=== PATIENT | female | born 1955 | race Caucasian/White ===

== ENCOUNTER 2017-10-16 19:34 | Inpatient (IN) | payer MEDICAID ==
[~2017-10-16] VITALS: Ht 167.6 cm; Wt 123.1 kg
[~2017-10-16 19:34] MED LIST: ACETAMINOPHEN-1 EAC1 PO; ADVAIR HFA115 MCG/21 INH; AMOXICILLIN875 MG PO; ATENOLOL 100MG100 MG PO; AUGMENTIN 875875 MG PO; AZITHROMYCIN 2250 MG PO; BENTYL 10 MG CA10 M1 PO; CEFUROXIME500 MG PO; CENTRUM SILVER1 EAC2 PO; CITRATE OF MAG296 ML PO; CLARITIN10 MG PO; CLOTRIMAZOLE 1%15 G1 TOP; COLACE100 MG PO; CORTISPORIN OTI10 M2 OT; CRESTOR10 MG PO; CRESTOR5 MG PO; DIFLUCAN200 MG PO; DOXYCYCLINE 10100 MG PO; EXCEDRIN CAPLE1 EACH PO; FLONASE 0.05%50 MCG NASAL; FLOVENT DISKUS50 MCG IH; GLUMETZA500 PO; HYDROCHLOROTHIA25 M1 PO; HYDROCHLOROTHIA25 M2 GT; HYDROCODONE-AP1 EAC6 PO; HYDROXYZINE HCL50 MG; HYDROXYZINE PAM50 MG PO; IBUPROFEN 800800 MG PO; K-DUR 20 MEQ T20 MEQ; KLOR-CON 1010 MEQ PO; LEVOTHROID75 MCG; LEVOTHYROXINE0.05 MG PO; LIPITOR20 MG PO; LORAZEPAM 1 MG T1 M1 PO; LORAZEPAM 1 MG T1 MG PO; MACROBID 100 M100 M1 PO; MUCINEX TA600 MG/TA2 PO; NAPROSYN500 MG PO; NIASPAN 500 MG500 M1; NORCO 5-325 TA1 EAC1 PO; NORCO 5-325 TA1 EACH PO; PERCOCET 5-3251 EACH PO; POTASSIUM20; PROBIOTIC1 EAC1 PO; PROTONIX40 M1 PO; SERTRALINE HCL50 MG PO; SINGULAIR 10 MG10 M1 PO; SYNTHROID PO; SYNTHROID100 MCG; TESSALON200 MG PO; TRANSDERM-SCO1 PATC1 TD; TRIAMCINOLONE A80 G2 TOP; ULTRAM 50MG TAB50 MG PO; UNICOMPLEX M TA1 TA1 PO; VERAMYST10 GM; VITAMIN D3400 UNIT PO; XOPENEX 0.63 MG/3 M1 INH; ZOLOFT 50 MG TA50 M1 PO; ZPAK PO; [UNRECOGNIZED DRUG - OTHER] PO; [UNRECOGNIZED DRUG - OTHER] TP
[2017-10-16 19:38] VITALS: BP 178/91
[2017-10-16 20:13] LABS: URINE BILIRUBIN NEGATIVE (Negative); URINE BLOOD TRACE (Negative); URINE CLARITY CLEAR; URINE COLOR YELLOW; URINE GLUCOSE-RANDOM NEGATIVE (Negative); URINE KETONES NEGATIVE (Negative); URINE LEUKOCYTES-REFLEX TRACE (Negative); URINE NITRITE-REFLEX NEGATIVE (Negative); URINE PROTEIN NEGATIVE (Negative); URINE UROBILINOGEN 0.2 E.U./dl (0.2-1.0)
[2017-10-16 20:23] LABS: MUCUS None Seen strn/LPF (None Seen); SQUAMOUS >10 Many /LPF (0-3)
[2017-10-16 20:24] LABS: BACTERIA-REFLEX 1-9 Few /HPF (None Seen); CASTS None Seen /LPF (None Seen); CRYSTALS None Seen /LPF (None Seen); URINE RBC 0-2 Rare /HPF (0-2); URINE WBC-REFLEX 0-5 Rare /HPF (0-5)
[2017-10-16 20:56] LABS: ABSOLUTE EOSINOPHILS 0.1 thou/uL (0.0-0.7); ABSOLUTE LYMPHOCYTES 2.6 thou/uL (0.8-5.3); ABSOLUTE MONOCYTES 0.7 thou/uL (0.0-1.2); ABSOLUTE NEUTROPHILS 3.3 thou/uL (1.6-8.1); BASOPHILS 0.4 %; EOSINOPHILS 2.2 %; HEMATOCRIT 40.3 % (37.0-47.0); HEMOGLOBIN 13.6 gm/dL (12.0-15.0); LYMPHOCYTES 38.4 %; MCH 29.2 pg (26.0-34.0); MCHC 33.8 g/dL (28.0-37.0); MCV 86.3 fL (80.0-100.0); MPV 8.4 fl. (7.2-11.1); NUCLEATED RBCS 0 /100WBC; PLATELET COUNT* 201 thou/uL (150-400); RBC 4.66 mil/uL (4.20-5.00); RDW-CV 13.9 % (10.5-14.5); WBC 6.7 thou/uL (4.0-11.0)
[2017-10-16 21:05] LABS: ANION GAP 10 mmol/L (7-16); BUN 24 mg/dL (7-18); CALCIUM 9.2 mg/dL (8.5-10.1); CHLORIDE 106 mmol/L (98-107); CO2 26 mmol/L (21-32); CREATININE 1.4 mg/dL (0.6-1.3); GLUCOSE 131 mg/dL (70-99); POTASSIUM 4.5 mmol/L (3.5-5.1); SODIUM 142 mmol/L (136-145)
[2017-10-16 21:12] LABS: ALBUMIN 3.7 g/dL (3.4-5.0); ALKALINE PHOSPHATASE 90 U/L (46-116); LIPASE 207 U/L (73-393); SGOT 27 U/L (15-37); SGPT 46 U/L (30-65); TOTAL BILIRUBIN 0.4 mg/dL (<0.1-1.0); TOTAL PROTEIN 7.8 g/dL (6.4-8.2); TROPONIN-I LEVEL <0.06 ng/mL (<0.06)
[2017-10-16 23:08] LABS: BE -5.2 mmol/L (-2 to +3); HCO3 22.3 mmol/L (22.0-26.0); PO2 62.5 mmHg (75.0-100.0)
[2017-10-16 23:13] LABS: PCO2 51.2 mmHg (35.0-45.0); pH 7.257 (7.340-7.450)
[2017-10-16 23:30] VITALS: BP 139/72
[2017-10-17 00:09] VITALS: BP 138/79
--- NOTE | 2017-10-17 13:13 | EKG ---
[place] [address] ELECTROCARDIOGRAM REPORT Name: MANDY TUCKER Room: [address] ADM IN .R.#: [id number] Admission: 10/16/17 Attend Phys: David Dumont Discharge: Date of : 55 Report #: [id number] THIS REPORT FOR: //name// [facility] ED Test Date: 2017-10-16 Test Time: 20:19:26 Pat Name: MANDY TUCKER Department: Room: [facility] Gender: F Biological Science Technician: RAEANN : 1955 Requested By: Kenneth Cosby Order Number: [id number] MD: Aureliano Eastman Measurements Intervals [place] Rate: 76 P: 44 [place]: 168 QRS: 42 QRSD: 89 T: 58 QT: 385 QTc: 433 Interpretive Statements Sinus rhythm Abnormal R-wave progression, early transition Baseline wander in lead(s) V1 Compared to ECG 08/06/2017 11:29:15 no change Electronically Signed On 10-17-2017 13:13:05 CONCRETE FINISHER by Aureliano Eastman [email or web address] <ELECTRONICALLY SIGNED> By: Aureliano Eastman MD, [facility] 10/17/17 1313 18 18 Aureliano Eastman MD, [facility] /EPI
[2017-10-17 16:13] LABS: AMP/METHAMP Negative (Negative); BARBITURATES Negative (Negative); BENZODIAZEPINES Negative (Negative); COCAINE Negative (Negative); METHADONE Negative (Negative); OPIATES Negative (Negative); PCP Negative (Negative); THC Negative (Negative)
[2017-10-17 17:43] VITALS: BP 127/64
[2017-10-17 20:00] VITALS: BP 128/74
[2017-10-17 22:15] VITALS: BP 149/82
[2017-10-18 00:16] VITALS: BP 133/66
[2017-10-18 03:58] VITALS: BP 132/67
[2017-10-18 06:03] LABS: HEMATOCRIT 35.6 % (37.0-47.0); MCH 29.5 pg (26.0-34.0); MCHC 33.8 g/dL (28.0-37.0); MCV 87.2 fL (80.0-100.0); MPV 8.9 fl. (7.2-11.1); NUCLEATED RBCS 0 /100WBC; PLATELET COUNT* 162 thou/uL (150-400); RBC 4.08 mil/uL (4.20-5.00); RDW-CV 14.1 % (10.5-14.5); WBC 5.9 thou/uL (4.0-11.0)
[2017-10-18 06:30] LABS: CALCIUM 8.8 mg/dL (8.5-10.1); CREATININE 1.5 mg/dL (0.6-1.3); POTASSIUM 5.2 mmol/L (3.5-5.1)
[2017-10-18 07:45] LABS: ABSOLUTE LYMPHOCYTES 0.6 thou/uL (0.8-5.3); ABSOLUTE MONOCYTES 0.1 thou/uL (0.0-1.2); ABSOLUTE NEUTROPHILS 5.1 thou/uL (1.6-8.1)
[2017-10-18 07:46] LABS: PLATELET ESTIMATE DECREASED
[2017-10-18 08:00] VITALS: BP 153/68
[2017-10-18 12:10] VITALS: BP 134/74
--- NOTE | 2017-10-18 12:12 | EKG ---
[place] [address] ELECTROCARDIOGRAM REPORT Name: MANDY TUCKER Room: [address] ADM IN M.R.#: [id number] Admission: 10/16/17 Attend Phys: David Dumont Discharge: Date of : 55 Report #: [id number] THIS REPORT FOR: //name// [facility] Test Date: 2017-10-17 Test Time: 22:15:41 Pat Name: MANDY TUCEKR Department: Room: [address] Gender: F Database Design Analyst: ISAAC : 1955 Requested By: Guilherme Marion Order Number: [id number] MD: Rusty Melgar Measurements Intervals [place] Rate: 89 P: 56 TN: 170 QRS: 56 QRSD: 93 T: 55 QT: 379 QTc: 462 Interpretive Statements Sinus rhythm Compared to ECG 10/16/2017 20:19:26 No significant changes Electronically Signed On 10-18-2017 12:12:20 MANAGER ENGLISH by Rusty Melgar [email or web address] <ELECTRONICALLY SIGNED> By: Rusty Melgar MD, [facility] 10/18/17 1212 2215 2215 Rusty Melgar MD, FAC /EPI
[2017-10-18 15:40] VITALS: BP 133/62
[2017-10-18 17:42] LABS: BE -6.1 mmol/L (-2 to +3); HCO3 20.1 mmol/L (22.0-26.0); PCO2 42.2 mmHg (35.0-45.0); PO2 70.9 mmHg (75.0-100.0)
[2017-10-18 17:44] LABS: pH 7.295 (7.340-7.450)
[2017-10-18 20:00] VITALS: BP 130/66
[2017-10-19 00:36] VITALS: BP 158/87
[2017-10-19 03:57] LABS: HEMATOCRIT 35.1 % (37.0-47.0); HEMOGLOBIN 11.6 gm/dL (12.0-15.0); MCH 29.1 pg (26.0-34.0); MCV 88.1 fL (80.0-100.0); MPV 8.5 fl. (7.2-11.1); RBC 3.98 mil/uL (4.20-5.00); RDW-CV 14.1 % (10.5-14.5); WBC 11.5 thou/uL (4.0-11.0)
[2017-10-19 04:06] VITALS: BP 137/72
[2017-10-19 04:11] LABS: ALBUMIN 3.2 g/dL (3.4-5.0); CALCIUM 8.6 mg/dL (8.5-10.1); CREATININE 1.5 mg/dL (0.6-1.3); POTASSIUM 4.8 mmol/L (3.5-5.1); TOTAL BILIRUBIN 0.2 mg/dL (<0.1-1.0); TOTAL PROTEIN 6.9 g/dL (6.4-8.2)
[2017-10-19 09:00] VITALS: BP 157/63
[2017-10-19 15:56] VITALS: BP 147/76
[2017-10-19 20:00] VITALS: BP 176/86
[2017-10-20] VITALS: BP 172/78
[2017-10-20 03:37] VITALS: BP 161/60
[2017-10-20 08:00] VITALS: BP 185/86
[2017-10-20 12:24] LABS: BE -3.3 mmol/L (-2 to +3); HCO3 20.5 mmol/L (22.0-26.0); PCO2 32.8 mmHg (35.0-45.0); PO2 82.3 mmHg (75.0-100.0); pH 7.413 (7.340-7.450)
[2017-10-20 16:00] VITALS: BP 179/85
[2017-10-20 16:31] VITALS: BP 179/100
[2017-10-20 20:00] VITALS: BP 152/81
[2017-10-21 02:46] VITALS: BP 177/87
[2017-10-21 04:00] VITALS: BP 177/87
[2017-10-21 07:30] VITALS: BP 157/77
--- NOTE | 2017-10-21 07:56 | CON ---
[address] [address] CONSULTATION Name: MANDY TUCKER Room: [address] IN M.R.#: [id number] Admission: 10/16/17 Attend Phys: David Dumont Discharge: Date of : 55 Report #: [id number] THIS REPORT FOR: //name// CC: Freeman Marion DO DATE OF SERVICE: 10/18/2017 ATTENDING PHYSICIAN: Guilherme Marion DO INDICATION FOR CONSULTATION: Dyspnea on exertion, abnormal blood gases. CLINICAL SUMMARY: The patient is a 62-year-old female, current smoker with chronic obstructive pulmonary disease and chronic narcotic use. She has had a prior history of kidney cancer on the right. She states that breathing treatments do not help her. She has tried Advair at home, it does not seem to help. She has chronic pain issues. She denies having obstructive sleep apnea in the past, has not had a sleep study. She does sleep quite a few hours during the day and sometimes does not feel rested. She had abnormal blood gases. She is alert and awake this morning and doing well on 1-2 liters. She is not on oxygen at home. She does not use a nebulizer machine at home. PAST MEDICAL HISTORY: She has a history of chronic obstructive pulmonary disease. She has chronic pain, back pain, constipation, dizziness, dyspnea on exertion, mild renal insufficiency, questionable history of rheumatoid arthritis in the past, right kidney removed for cancer about 3 years ago, questionable history of esophageal CA in the past.. ALLERGIES: SHE HAS MULTIPLE ALLERGIES TO CIPRO, SULFA, KEFLEX, IVP DYE, LEVOTHYROXINE, MORPHINE, SUMATRIPTAN, TETRACYCLINE. ALL THESE ARE UNSURE WHAT THE REACTION SHE HAS. MEDICATIONS: She is on hydrocodone at home, [place] 5/325 every 6 hours, also on clotrimazole and hydroxyzine 50 mg at night. Also, on sertraline or Zoloft 50 mg tablets daily, Crestor 10 mg daily, atenolol 100 mg daily, levothyroxine 100 mcg daily, lorazepam 1 mg t.i.d., fluticasone 1 spray b.i.d., montelukast 10 mg daily, and Docusate 100 mg b.i.d. FAMILY HISTORY: Negative for premature cardiopulmonary disease. SOCIAL HISTORY: The patient still smokes, has a half to one pack a day history and about a 48-glwj-covj history. Denies any alcohol or illicit drug use. Again, significant narcotic use at home. REVIEW OF SYSTEMS: A 14-point review of systems reviewed [place] [address] CONSULTATION Name: GARRETTMANDY F Room: [address] IN ..#: [id number] Admission: 10/16/17 Attend Phys: David Dumont Discharge: Date of : 55 Report #: [id number] for pertinent positives noted in HPI. PHYSICAL EXAMINATION: GENERAL: A 62-year-old female who this morning is alert and oriented and seems quite pleasant. She is in no distress and talked to me in full sentences. VITAL SIGNS: Blood pressure is 132/67, heart rate 84, respirations 16, temperature is 36.7 degrees, saturation on 2 liters 95%. She is 5 feet 3 inches tall, weight 265 pounds, BMI is 43. HEENT: Nares and pharynx, tongue is quite crowded, Mallampati score of 3. NECK: Shows a thick neck without masses or adenopathy. CHEST: Shows decreased breath sounds, otherwise clear. No wheeze. CARDIOVASCULAR: Regular rate and rhythm without murmur, gallop or rub. Heart rate is 84. ABDOMEN: Obese without masses or megaly. EXTREMITIES: No calf tenderness. No cyanosis, clubbing or edema. SKIN: Dry and intact. NEUROLOGIC: Intact. LABORATORY DATA: Hemoglobin is 12, white count 5900, normal differential. This morning sodium is 144, potassium is 5.2, BUN is 23, creatinine is 1.5, glucose is 105. ABGs from late 10/16/2017 at 2300 while she was somewhat sleepy on 2 liters showed a pO2 of 62, pH 7.25, pCO2 of 51, bicarbonate is 22 with a sat of 87%. Carboxyhemoglobin was only 0.1 then. Chest x-ray shows mild chronic obstructive pulmonary disease, hyperinflation, some bibasilar scarring. No masses or tumors. V/Q scan was low probability, within normal limits. IMPRESSION: 1. Abnormal arterial blood gases, most likely combination of chronic narcotic use, hypoventilation, some [id number] chronic obstructive pulmonary disease. 2. Obesity. 3. Chronic narcotic use. PLAN: As you are doing, cut back narcotics and sedatives. She is also on lorazepam t.i.d. May need a sleep study in the future as well as full PFTs. Encouraged the patient to discontinue smoking. Try and take her Advair at home and see if that will not help. We will add some albuterol tablets. Continue on with montelukast and see if she does not improve, probably check a room air blood gas in a day or two and see how she does with that. Thanks again for allowing us to participate in this lady's care. We will follow up along with you while she is in the hospital. <ELECTRONICALLY SIGNED> By: Dharmesh Elizabeth MD 10/21/17 0756 0844 [id number] Elizabeth MD /nt
[2017-10-21] MEDS ORDERED: ALBUTEROL SULFAT2 MG PO (09:58)
[2017-10-21 10:17] VITALS: BP 157/77
== END 2017-10-21 12:40 | disposition home or self-care (01) | DRG 189 ==
LOC: M.ERS 19:34 → M.TBA-ER 22:37 → M.3W 22:37
PROVIDERS: Family Medicine; Internal Medicine; Internal Medicine Pulmonary Disease; Nurse Practitioner Family; Physician Assistant; ADMIT Internal Medicine
DX: J96.21 Acute and chronic respiratory failure with hypoxia (principal); J44.1 Chronic obstructive pulmonary disease with (acute) exacerbation; E87.2 Acidosis; Z68.41 Body mass index [BMI] 40.0-44.9, adult; N39.0 Urinary tract infection, site not specified; E03.9 Hypothyroidism, unspecified; F41.9 Anxiety disorder, unspecified; M06.9 Rheumatoid arthritis, unspecified; N18.3 Chronic kidney disease, stage 3 (moderate); I12.9 Hypertensive chronic kidney disease with stage 1 through stage 4 chronic kidney disease, or unspecified chronic kidney disease; G43.909 Migraine, unspecified, not intractable, without status migrainosus; F17.210 Nicotine dependence, cigarettes, uncomplicated; G89.29 Other chronic pain; E66.01 Morbid (severe) obesity due to excess calories; M19.90 Unspecified osteoarthritis, unspecified site; E87.5 Hyperkalemia; I16.0 Hypertensive urgency; R51 Headache; E11.22 Type 2 diabetes mellitus with diabetic chronic kidney disease; I71.2 Thoracic aortic aneurysm, without rupture; Z85.01 Personal history of malignant neoplasm of esophagus; Z85.528 Personal history of other malignant neoplasm of kidney; Z88.2 Allergy status to sulfonamides; Z88.8 Allergy status to other drugs, medicaments and biological substances; Z88.6 Allergy status to analgesic agent; Z88.1 Allergy status to other antibiotic agents; Z91.041 Radiographic dye allergy status; Z90.5 Acquired absence of kidney; Z79.891 Long term (current) use of opiate analgesic; Z87.891 Personal history of nicotine dependence; Z91.19 Patient's noncompliance with other medical treatment and regimen

== ENCOUNTER 2018-12-09 14:23 | Emergency (ER) | payer MEDICAID ==
[~2018-12-09] VITALS: Ht 167.6 cm; Wt 68.5 kg
[~2018-12-09 14:23] MED LIST changes: +ALBUTEROL SULFAT2 MG PO; -SYNTHROID100 MCG; +SYNTHROID137 MC1 PO
[2018-12-09] MEDS ORDERED: VISTARIL 25 MG25 M1 PO (14:46)
[2018-12-09 15:19] LABS: ABSOLUTE EOSINOPHILS 0.1 thou/uL (0.0-0.7); ABSOLUTE LYMPHOCYTES 1.8 thou/uL (0.8-5.3); ABSOLUTE MONOCYTES 0.5 thou/uL (0.0-1.2); ABSOLUTE NEUTROPHILS 3.7 thou/uL (1.6-8.1); BASOPHILS 0.5 %; HEMATOCRIT 41.9 % (37.0-47.0); LYMPHOCYTES 28.8 %; MCH 29.1 pg (26.0-34.0); MCHC 33.5 g/dL (28.0-37.0); MONOCYTES 8.6 %; NUCLEATED RBCS 0 /100WBC; PLATELET COUNT* 195 thou/uL (150-400); POLYS 60.1 %; RBC 4.82 mil/uL (4.20-5.00); WBC 6.1 thou/uL (4.0-11.0)
[2018-12-09 15:34] LABS: LIPASE 159 U/L (73-393); TROPONIN-I LEVEL <0.06 ng/mL (<0.06)
[2018-12-09 15:57] LABS: ALBUMIN 3.6 g/dL (3.4-5.0); CALCIUM 8.9 mg/dL (8.5-10.1); CREATININE 1.4 mg/dL (0.6-1.3); POTASSIUM 4.1 mmol/L (3.5-5.1); TOTAL BILIRUBIN 0.4 mg/dL (<0.1-1.0); TOTAL PROTEIN 7.3 g/dL (6.4-8.2)
[2018-12-09] MEDS ORDERED: ZPAK PO (16:57)
[2018-12-09 17:11] VITALS: BP 142/79
--- NOTE | 2018-12-10 13:08 | EKG ---
[place] [address] ELECTROCARDIOGRAM REPORT Name: MANDY TUCKER Room: [facility]#: [id number] Admission: 12/09/18 Attend Phys: Discharge: 12/09/18 Date of : 55 Report #: [id number] THIS REPORT FOR: //name// [facility] ED Test Date: 2018-12-09 Test Time: 15:52:53 Pat Name: MANDY TUCKER Department: Room: Gender: F Manufacture Specialist: : 1955 Requested By: Nicole Wallace Order Number: [id number] MD: Aureliano Eastman Measurements Intervals [place] Rate: 78 P: 43 CT: 160 QRS: 27 QRSD: 84 T: 54 QT: 392 QTc: 447 Interpretive Statements Sinus rhythm Abnormal R-wave progression, early transition Compared to ECG 10/17/2017 22:15:41 No significant changes Electronically Signed On 12-10-2018 13:08:18 CDT by Aureliano Eastman [email or web address] <ELECTRONICALLY SIGNED> By: Aureliano Eastman MD, [facility] 12/10/18 1308 1552 155 Aureliano Eastman MD, FACC /EPI
== END 2018-12-09 17:13 | disposition home or self-care (01) ==
LOC: M.ERS 14:23
PROVIDERS: Nurse Practitioner Family
DX: R19.7 Diarrhea, unspecified (principal); E86.0 Dehydration; J18.9 Pneumonia, unspecified organism; E03.9 Hypothyroidism, unspecified; I10 Essential (primary) hypertension; F41.9 Anxiety disorder, unspecified; M06.9 Rheumatoid arthritis, unspecified; N19 Unspecified kidney failure; G43.909 Migraine, unspecified, not intractable, without status migrainosus; J44.9 Chronic obstructive pulmonary disease, unspecified; Z85.01 Personal history of malignant neoplasm of esophagus; Z88.1 Allergy status to other antibiotic agents; Z88.5 Allergy status to narcotic agent; Z88.2 Allergy status to sulfonamides; Z88.8 Allergy status to other drugs, medicaments and biological substances